=== PATIENT | male | born 1965 | race Caucasian/White ===

== ENCOUNTER 2020-07-01 22:21 | Emergency (ER) | payer BC, SELFPAY ==
[2020-07-01 22:21] VITALS: BP 113/63; PULSE 93; RESP 18; TEMP 36.2; BMI 44.8
--- NOTE | 2020-07-01 22:35 | RAD_ITS ---
STUDY: X-RAY - LEFT FOOT CLINICAL: Male, 55 years old. PT WAS CAMPING AND WALKING TO HIS TRUCK, C/O LEFT ANKLE TWISTED, PT UNABLE TO BEAR WEIGHT. TECHNIQUE: 3 view(s) of the foot. COMPARISON: None. FINDINGS: Normal talus, calcaneus, and tarsal bones. Continuous spurring. Normal visualized subtalar, talonavicular, calcaneocuboid, tarsal and tarsometatarsal articulations. Normal metatarsi. Normal metatarsophalangeal joint of the great toe. Normal tibial and fibular sesamoid bones. Normal interphalangeal joint of the great toe. Normal phalanges of the great toe. Normal second through fifth metatarsophalangeal joints. Normal interphalangeal joints and phalanges of the lesser toes. Soft tissue edema. Vascular calcifications. RAD/Foot min 3 Views IMPRESSION: No acute bony injury of the foot. Electronically Signed: Enrique Posada DO at 23:03 EDT Tel [phone], Service support ,
--- NOTE | 2020-07-01 22:36 | ED.DCSUM_ITS ---
- ER Visit Summary Date of Service: 07/01/20 Chief Complaint: Left ankle pain History of Present Illness: The patient is a 55 M with no primary care physician. He reports that he was walking through the grass and had a forced inversion injury of his left ankle just prior to coming emerge department. Complains of sharp pain is 10 out of 10 in severity. Is worsened by walking relieved by rest. He reports he has paresthesias in his toes. He denies any weakness. He did not hit his head. No loss of consciousness. He is not on anticoagulants. He denies any neck, back, shoulder, wrist, or hip pain. Physical Examination: Vitals: Stable. Afebrile. Neck: No vertebral tenderness. Full ROM without difficulty. Cleared by NEXUS criteria. Back: No vertebral tenderness. General: A&O x 3. NAD. Cardiovascular exam: Regular rate and rhythm, no murmur, rub or gallop. Respiratory exam: Chest nontender. No crepitus. Clear to auscultation bilaterally. No wheezes or stridor. Abdominal exam: Soft, nontender, nondistended, normal bowel sounds. No pain in RUQ or LUQ specifically. No peritoneal signs. Extremity: No pain over the proximal fibula. He does have moderate tenderness palpation of soft tissue swelling over the left lateral malleolus. No pain over the medial malleolus. He has mild tenderness of patient with the base of fifth metatarsal. He is neuro vas intact distally. Test Results: Clinical Impression(s) from Imaging Studies Foot X-Ray 07/01/20 22:35 IMPRESSION: No acute bony injury of the foot. Electronically Signed: Enrique Posada DO at 23:03 EDT Tel [phone], Service support , Ankle X-Ray 07/01/20 22:40 IMPRESSION: Soft tissue swelling of the ankle. Electronically Signed: Enrique Posada DO at 23:01 EDT Tel [phone], Service support , Emergency Department Course and Treatment: Patient was treated with Clinton, and Aircast, and crutches. He is resting more comfortably. Treatment Plan: Patient will be discharged with Clinton. Instructed to follow-up with his primary care physician in 1 week if not improving. Return to the emergency department for any worsening symptoms. Disposition: To home in improved and stable condition. Impression: 1. Fall. 2. Left ankle sprain. This note was generated with [employer] dictation software. It may contain incorrect words, spelling, and punctuation that were not noted in review of the chart prior to signing ED Disposition - Plan for ED Patient: Instructions: ED Sprain Ankle Prescriptions: Hydrocodone Bitart/Apap 5-325 [Clinton 5MG-325MG] 1 tab PO Q4H PRN PRN 2 Days #10 tab PRN Reason: Pain Prescription Printed Referrals: Doctor,Your [STAFF PHYSICIAN] - 1 Week if not improving
--- NOTE | 2020-07-01 22:40 | RAD_ITS ---
STUDY: X-RAY - LEFT ANKLE REASON FOR EXAM: Male, 55 years old. PT WAS CAMPING AND WALKING TO HIS TRUCK, C/O LEFT ANKLE TWISTED, PT UNABLE TO BEAR WEIGHT. TECHNIQUE: 3 view(s) of the ankle. COMPARISON: None. FINDINGS: Normal visualized distal tibia and fibula. Normal medial and lateral malleoli. Normal tibiotalar articulation and ankle mortise. Normal visualized talus and calcaneus. Calcaneal spurring. The visualized subtalar, talonavicular, calcaneocuboid and tarsal articulations are normal. Soft tissue swelling. Vascular calcifications. RAD/Ankle min 3 Views IMPRESSION: Soft tissue swelling of the ankle. Electronically Signed: Enrique Posada DO at 23:01 EDT Tel [phone], Service support ,
[2020-07-01] MEDS: HYDROcodone Bitartrate/Apap 5/325 Tablet PO (23:25)
== END 2020-07-01 23:42 | disposition home or self-care (01) ==
PROVIDERS: Emergency Provider Emergency Medicine
DX: S93.402A Sprain of unspecified ligament of left ankle, initial encounter (principal); W01.0XXA Fall on same level from slipping, tripping and stumbling without subsequent striking against object, initial encounter; Y93.89 Activity, other specified; Y92.89 Other specified places as the place of occurrence of the external cause; Y99.9 Unspecified external cause status
CPT/HCPCS: 73610; 73630; 99284